=== PATIENT | male | born 1975 | race Two or more races ===

== ENCOUNTER 2025-03-19 09:03 | Emergency (ER) | payer MEDICAID, SELFPAY ==
[2025-03-19 09:04] VITALS: BMI 50.1
[2025-03-19 09:20] VITALS: BP 148/90; PULSE 105; RESP 18; TEMP 36.9; O2SAT 95
--- NOTE | 2025-03-19 09:35 | XR_ITS ---
Examination: PA lateral chest 2 views TECHNIQUE: Upright PA lateral chest 2 views Exam date and time: March 19, 2025 0948 hours INDICATIONS: Chest pain today. FINDINGS: Mild CHF Moderate enlargement cardiac contour with prominent vascular congestion and perihilar edema Cardiac lead satisfactory position IMPRESSION: Mild CHF
--- NOTE | 2025-03-19 09:35 | EKG_ITS ---
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: : 1975 Requested By: Yamil Solomon (TRACE) Order Number: [id number] Reading MD: Yamil Solomon (REPRESENTATIVE) Measurements Intervals [place] Rate: 81 P: TX: QRS: -73 QRSD: 127 T: 95 QT: 392 QTc: 457 Interpretive Statements ATRIAL FIBRILLATION LEFT AXIS DEVIATION [QRS AXIS < -30] RIGHT BUNDLE BRANCH BLOCK [120+ ms QRS DURATION, UPRIGHT V1, 40+ ms S IN I/aVL/V4/V5/V6] ANTEROSEPTAL MYOCARDIAL INFARCTION , OF INDETERMINATE AGE [40+ ms Q WAVE IN V1-V4] Compared to ECG 10/12/2023 13:07:29 Right bundle-branch block now present Ventricular premature complex(es) no longer present Aberrant conduction of supraventricular beat(s) no longer present Myocardial infarct finding still present /store/S0/[id number]/ecg/[id number].pdf
--- NOTE | 2025-03-19 09:35 | XR_ITS ---
Examination: Ultrasound-guided paracentesis Abdominal sonogram limited Date and time of exam: March 11, 2025 1130 hours INDICATIONS: Cirrhosis, increasing abdominal distention this week Informed consent provided. A timeout was completed verifying correct patient, procedure, site, positioning, and special adequate movement if applicable. Technique: Multiple sonographic images of the abdomen have been obtained. Appropriate area for paracentesis was marked. Local anesthesia is obtained with 1% lidocaine. Yueh catheter is successfully introduced. Findings: Abdominal sonographic images demonstrate sufficient ascitic fluid for paracentesis. After placing the Yueh catheter, 1600 cc of fluid were successfully removed. During and after completion of the procedure the patient appear in satisfactory and stable condition with no complications observed. Estimated blood loss 0 cc Impression: Abdominal ascites Successful ultrasound-guided paracentesis as described above
--- NOTE | 2025-03-19 09:44 | PD.EDSOB ---
ED SOB =RME/HPI General Chief Complaint: Shortness of Breath/Dyspnea Stated Complaint: SOB, ABDOMINAL DISTENSION Time Seen by Provider: 03/19/25 09:42 Arrival date/time: 03/19/25 09:03 RME / HPI RME / HPI Narrative: DR. GARZON MAIN ED EVALUATION: 50 year old male presents to the Emergency Department with complaints of bloated abdomen, requesting paracentesis. Associated mild shortness of breath and a cough. He states from 09/2024 through 01/2025 he has required many paracentesis sessions, on the first one they took 10 L; since he has been doing well until now. Patient is complaint with his water pills. PMHx: Atrial fibrillation on Xarelto, CHF on water pills twice a day. Social Hx: No tobacco, alcohol, or substance use. Related Data Home Medications ?Medication ?Instructions ?Recorded ?Confirmed amoxicillin 875 mg-potassium 1 tab PO Q12H 02/26/22 02/26/22 clavulanate 125 mg tablet furosemide 40 mg tablet 40 mg PO QAM 02/26/22 02/26/22 nifedipine 20 mg capsule 20 mg PO QDAY 02/26/22 02/26/22 Previous Rx's ?Medication ?Instructions ?Recorded metoprolol succinate 200 mg 200 mg PO QDAY #30 tabs 08/14/19 tablet,extended release 24 hr Allergies Allergy/AdvReac Type Severity Reaction Status Date / Time No Known Allergies Allergy Verified 03/19/25 09:04 Review of Systems Review of Systems Systems Reviewed: All systems reviewed, normal except as documented Past Medical History Past Medical History CARDIAC: Positive Cardiac Disorders, Atrial Fibrillation, Congestive Heart Failure and Hypertension ENDOCRINE: Positive Diabetes Mellitus Type 2 Family History FAMILY HISTORY: Positive Family Cardiac Disorders Social History SMOKING STATUS: Never smoker SUBSTANCE USE: does not use ALCOHOL: Never ED Exam Narrative Physical exam: GENERAL APPEARANCE: alert and oriented x 4, well-developed, well-nourished, no acute distress VITALS: All vitals were reviewed and the pulse ox is 95% on room air, which is normal according to my interpretation. HEENT: Normocephalic, atraumatic; pupils equal, round, reactive to light; EOMI; mucous membranes pink, moist; oropharynx clear NECK: Supple LUNGS: CTABL; no wheezes, no rales, no rhonchi HEART: Regular rate, regular rhythm; normal S1, S2; no murmurs ABDOMEN: distended with fluid wave; normal BS; soft, no tenderness, no guarding, no rebound; no masses, no organomegaly, no hernia BACK: no CVA tenderness EXTREMITIES: atraumatic; there is 1+ pitting edema NEUROLOGIC: awake; alert and oriented x4; cranial nerves II-XII grossly intact; no focal sensory or motor deficits PSYCHIATRIC: appropriate mood and affect SKIN: warm, dry, normal color; no rashes Course Quality Measures none Orders Category Date Time Status EKG (ED ONLY) *Do not use* NOW Care 03/19/25 09:35 Completed Insert IV NOW Care 03/19/25 10:14 Active EKG (ED Only) Stat Exams 03/19/25 09:35 Draft US paracentesis abd w/image Stat Exams 03/19/25 09:35 Completed XR chest 2V Stat Exams 03/19/25 09:35 Completed B-Type Natriuretic Peptide Stat Lab 03/19/25 10:05 Completed CBC Stat Lab 03/19/25 10:05 Completed Comprehensive Metabolic Panel Stat Lab 03/19/25 10:31 Completed Drug Screen,Urine Stat Lab 03/19/25 11:20 Completed Magnesium Stat Lab 03/19/25 10:31 Completed Partial Thromboplastin Time Stat Lab 03/19/25 10:05 Completed Prothrombin Time with INR Stat Lab 03/19/25 10:05 Completed Troponin I Stat Lab 03/19/25 10:31 Completed Urinalysis Stat Lab 03/19/25 11:20 Completed Lidocaine 1% Pf 30 ml [Xylocaine 1% Pf 30 ml] Med 03/19/25 11:17 Discontinued 30 ml .ROUTE .STK-MED ONE Vital Signs Vital signs: Vital Signs Temperature 98.5 F 03/19/25 09:20 Pulse Rate 105 H 03/19/25 09:20 Respiratory Rate 18 03/19/25 09:20 Blood Pressure 148/90 H 03/19/25 09:20 Pulse Oximetry (%) 95 03/19/25 09:20 Oxygen Delivery Method Room Air 03/19/25 09:20 Shortness of Breath / Dyspnea MDM Narrative MDM Narrative:: ILeia am scribing for and in the presence of Dr. Garzon. Patient data External records reviewed:: [facility] previous records (Reviewed last admission discharge dated 05/11/24, patient admitted for the following: Other ascites) Clinical information provided by:: patient Social determinants that could affect healthcare access:: none Patient has the following chronic illnesses:: Atrial fibrillation on Xarelto, CHF on water pills twice a day. How is presenting disease/condition affected by chronic disease/condition?: exacerbated by Evaluation data The following diagnostics were reviewed and interpreted by me:: lab results, radiology exam(s) and EKG tracing(s) (EKG#1: EKG at 0938 hours. Interpreted by me: sinus rhythm, rate 81, Q waves in V1-V2 and leads 2 and 3, no acute ischemic changes) Lab and/or radiology exams considered but not ordered:: none Interpretation Summary: Procedure(s): US paracentesis abd w/image Accession Number(s): [id number] cc: Neha (TRACE),Yamil WOODWARD; Feliz ([facility]),Geeta CONNOR; Rajan Kennedy MD~ Examination: Ultrasound-guided paracentesis Abdominal sonogram limited Date and time of exam: March 11, 2025 1130 hours INDICATIONS: Cirrhosis, increasing abdominal distention this week Informed consent provided. A timeout was completed verifying correct patient, procedure, site, positioning, and special adequate movement if applicable. Technique: Multiple sonographic images of the abdomen have been obtained. Appropriate area for paracentesis was marked. Local anesthesia is obtained with 1% lidocaine. Yueh catheter is successfully introduced. Findings: Abdominal sonographic images demonstrate sufficient ascitic fluid for paracentesis. After placing the Yueh catheter, 1600 cc of fluid were successfully removed. During and after completion of the procedure the patient appear in satisfactory and stable condition with no complications observed. Estimated blood loss 0 cc Impression: Abdominal ascites Successful ultrasound-guided paracentesis as described above Dictated By: Rajan Kennedy MD Procedure(s): XR chest 2V Accession Number(s): [id number] cc: Neha ALVA),Yamil WOODWARD; Feliz RON)Geeta PA-C; Rajan Kennedy MD~ Examination: PA lateral chest 2 views TECHNIQUE: Upright PA lateral chest 2 views Exam date and time: March 19, 2025 0948 hours INDICATIONS: Chest pain today. FINDINGS: Mild CHF Moderate enlargement cardiac contour with prominent vascular congestion and perihilar edema Cardiac lead satisfactory position IMPRESSION: Mild CHF Dictated By: Rajan Kennedy MD Medications / Prescriptions Medications or Prescriptions considered but not ordered:: none Medication administrations:: Medication Administration History Discontinued Medications Lidocaine HCl (Lidocaine Inj Pf 1% 30 Ml Vial) Confirm Administered Dose 30 ml .ROUTE .STK-MED ONE Stop: 03/19/25 11:18 see above if any Consultations Consultation(s) initiated? (list below): No Diagnosis Shortness of Breath Differential Diagnosis: acute exacerbation of chronic obstructive airways disease, congestive heart failure and other (ascites) Most likely diagnosis given after review of the tests above:: Abdominal ascites Status post abdominal paracentesis Admission Indicated Admission indicated?: not indicated Admission Request Was there a request for admission?: No Disposition Plan Disposition Plan: Discharge Discharge Attestation Discharge Attestation: The patient and all family members were given an opportunity to ask questions and understood the discharge instructions. Discharge instructions specifically effects, indications for sooner follow up or return to the emergency department, and the expected course of current diagnosis. Patient condition: Stable Discharge Plan Plan Patient Disposition: HOME (Self Care) Prescriptions/Referrals Prescriptions/Med Rec: No Action metoprolol succinate 200 mg tablet extended release 24 hr 200 mg PO QDAY Qty: 30 0RF Rx Instructions: New dose. furosemide 40 mg tablet 40 mg PO QAM Patient Comments: TAKE ONE TABLET BY MOUTH EVERY DAY IN THE MORNING A DIURETIC nifedipine 20 mg capsule 20 mg PO QDAY Patient Comments: TAKE ONE CAPSULE BY MOUTH THREE TIMES DAILY amoxicillin-pot clavulanate 875-125 mg tablet 1 tab PO Q12H Patient Comments: TAKE ONE TABLET BY MOUTH EVERY TWELVE HOURS FOR INFECTION Referrals: Feliz RON),NIKOLAS Connor [Primary Care Provider] - In 1 week Problem List Clinical Impression: Abdominal ascites, Status post abdominal paracentesis Patient/Caregiver Discharge Instructions Education Materials: Paracentesis, ED Ascites Print Language: [place] Stand Alone Forms: Judith Award Info., Patient Portal Info Letter
[2025-03-19 10:18] LABS: Basophils # (Auto) 0.1 Thou/mm3 (0.0-0.2); Basophils % (Auto) 1 % (0-2.5); Eosinophils # (Auto) 0.1 Thou/mm3 (0.0-0.5); Eosinophils % (Auto) 1 % (0-10); Hematocrit 52.3 % (41.0-53.0); Hemoglobin 17.2 g/dL (13.5-16.0); Immature Granulocytes % (Auto) 0 % (0-0); Immature Granulocytes Auto 0.02 Thou/mm3 (0.00-0.00); Lymphocytes # (Auto) 1.1 Thou/mm3 (1.0-4.8); Lymphocytes % (Auto) 14 % (10-50); Mean Corpuscular HGB Conc 32.9 g/dl (31.0-37.0); Mean Corpuscular Hemoglobin 29.9 pg (25.0-35.0); Mean Corpuscular Volume 91 fL (80-100); Monocytes # (Auto) 1.1 Thou/mm3 (0.0-0.8); Monocytes % (Auto) 14 % (0-12); Neutrophils # (Auto) 5.3 Thou/mm3 (1.8-7.7); Neutrophils % (Auto) 69 % (37-80); Nucleated Red Blood Cell % 0 /100 WBC (0); Platelet Count 203 Thou/mm3 (140-440); RDW Standard Deviation 54.2 fL (35.1-43.9); Red Blood Count 5.76 Miln/mm3 (4.50-5.90); White Blood Count 7.6 Thou/mm3 (3.8-10.6)
[2025-03-19 10:27] LABS: INR 1.8 (0.9-1.3); Partial Thromboplastin Time 33.4 Seconds (22.0-36.0); Prothrombin Time 18.8 Seconds (9.0-12.2)
[2025-03-19 10:58] LABS: B-Type Natriuretic Peptide 365 pg/mL (0-100)
[2025-03-19 10:59] LABS: Alanine Aminotransferase < 7 U/L (10-49); Albumin, Serum 3.9 gm/dL (3.5-5.0); Albumin/Globulin Ratio 1.1 (1.2-2.2); Alkaline Phosphatase 90 U/L (46-116); Anion Gap 9 (7-16); Aspartate Amino Transferase 21 U/L (0-34); BUN/Creatinine Ratio 13 Ratio (12-20); Bilirubin,Total 1.5 mg/dL (0.3-1.2); Blood Urea Nitrogen 16 mg/dL (9-23); Calcium 8.6 mg/dL (8.3-10.6); Calcium (Corrected) 8.7 mg/dL (8.5-10.1); Carbon Dioxide 22.3 mMol/L (20.0-31.0); Chloride 105 mMol/L (98-107); Creatinine (Component) 1.2 mg/dL (0.6-1.3); Estimated Creatinine Clearance 99.5 mL/min (>60); Globulin 3.6 gm/dL (2.3-3.5); Glucose 122 mg/dL (74-106); Osmolality,Calculated 274 (275-295); Potassium 3.4 mMol/L (3.4-5.1); Sodium 136 mMol/L (136-145); Total Protein 7.5 gm/dL (5.7-8.2); Troponin I 0.038 ng/mL (0.0-0.045); eGFR > 60 See Note
[2025-03-19 11:42] LABS: Collection Type, Urine Clean Catch
[2025-03-19 12:20] LABS: Bacteria,Urine Rare; Bilirubin,Urine Negative (Negative); Blood,Urine 2+ (Negative); Clarity,Urine Clear (Clear/Hazy); Color,Urine Yellow (Lt Yel-Yel); Glucose, Urine 4+ (Negative); Ketones,Urine Negative (Negative); Leukocyte Esterase,Urine Negative (Negative); Nitrite,Urine Negative (Negative); Protein,Urine 3+ (Neg - Trace); RBC,Urine 13 /hpf (0-3); Specific Gravity,Urine 1.034 (1.001-1.035); Squamous Epithelial Cell,Urine 11 /hpf (0-5); WBC,Urine 3 /hpf (0-5)
[2025-03-19 12:35] LABS: Amphetamine/Methamp Scrn,U Negative (Negative); Barbiturate Screen,Urine Negative (Negative); Benzodiazepines Screen,Urine Negative (Negative); Benzoylecgonine Screen, Ur Negative (Negative); Fentanyl Screen,Urine Negative (Negative); Opiate Screen,Urine Negative (Negative); THC Screen,Urine Negative (Negative)
[2025-03-19 14:09] VITALS: BP 162/101; PULSE 76; RESP 18; TEMP 36.8; O2SAT 96
[2025-03-19] MEDS: LIDOCAINE INJ PF 1% 30 ML VIAL (14:15)
[2025-03-19 14:20] VITALS: BP 162/101; PULSE 76; RESP 18; TEMP 36.1; O2SAT 91
== END 2025-03-19 14:21 | disposition home or self-care (01) ==
PROVIDERS: Nurse Practitioner Primary Care; Emergency Provider Emergency Medicine; PCP Physician Assistant
DX: R18.8 Other ascites (principal); K74.60 Unspecified cirrhosis of liver; I45.10 Unspecified right bundle-branch block; I48.91 Unspecified atrial fibrillation; I11.0 Hypertensive heart disease with heart failure; I50.9 Heart failure, unspecified; Z79.01 Long term (current) use of anticoagulants
CPT/HCPCS: 49083; 36415; 71046; 80053; 80307; 81001; 83735; 83880; 84484; 85025; 85610; 85730; 93005; 99285; C1729; J3490